=== PATIENT | female | born 1945 | race Caucasian/White ===

== ENCOUNTER 2023-05-03 09:16 | Emergency (ER) | payer BC ==
[~2023-05-03] VITALS: Ht 162.6 cm; Wt 81.6 kg
[2023-05-03 09:31] VITALS: BP_SYST 151; PULSE 92; RESP 18; TEMP 98.7; O2SAT 97
[2023-05-03] MEDS ORDERED: LIDOCAINE 1% 10 MG/ML, 20 ML MDV INJ ONE (09:45)
[2023-05-03 10:18] LABS: HEMATOCRIT 38.7 % (36-48); HEMOGLOBIN 12.8 g/dL (12.0-16.0); MEAN CORPUSCULAR HEMOGLOBIN 31 pg (27-31); MEAN CORPUSCULAR HGB CONC 33 % (32-36); MEAN CORPUSCULAR VOLUME 93 fL (79.0-98.0); PLATELET COUNT (AUTO) 294 K/uL (130-430); RED BLOOD CELL COUNT(AUTO) 4.16 MIL/uL (4.2-6.2); RED CELL DISTRIBUTION WIDTH 14.8 % (9.0-15.0); WHITE BLOOD COUNT (AUTO) 9.5 K/uL (4.8-10.8)
[2023-05-03 10:56] LABS: ERYTHROCYTE SEDIMENTATION RATE 64 MM/HR (0-20)
[2023-05-03 11:09] LABS: LYMPHOCYTES % (MANUAL) 22 % (20-46); MONOCYTES % (MANUAL) 3 % (0-11)
[2023-05-03 11:10] LABS: BASOPHILS % (MANUAL) 0 % (0-2); EOSINOPHILS % (MANUAL) 1 % (0-7)
[2023-05-03 11:29] LABS: ALANINE AMINOTRANSFERASE 37 U/L (12-78); ALBUMIN 3.3 g/dL (3.4-4.8); ANION GAP 10 (5-15); ASPARTATE AMINOTRANSFERASE 29 U/L (10-37); CALCIUM 9.1 mg/dL (8.4-11.0); CHLORIDE 105 mmol/L (98-107); GLUCOSE 118 mg/dL (74-106); TOTAL BILIRUBIN 0.6 mg/dL (0.0-1.0); UREA NITROGEN, BLOOD 20 mg/dL (8-21)
[2023-05-03] MEDS ORDERED: ACET-2634 PO (12:03)
[2023-05-03] MEDS ORDERED: NAPR-1172 PO (12:17)
[2023-05-03 12:24] VITALS: BP_SYST 111; PULSE 84; RESP 18; TEMP 98.7; O2SAT 97
== END 2023-05-03 12:23 | disposition home or self-care (01) ==
LOC: SED 09:16
DX: M25.431 Effusion, right wrist (principal); M19.031 Primary osteoarthritis, right wrist; I10 Essential (primary) hypertension; E11.9 Type 2 diabetes mellitus without complications; Z79.899 Other long term (current) drug therapy
CPT/HCPCS: 20606; 99284; 85027; 80053; 85007; 85651; 87040; 36415; 83605; 82397; J2001; 99283